=== PATIENT | male | born 1960 | race Caucasian/White ===

== ENCOUNTER 2017-02-26 16:15 | Inpatient (IN) | payer OTHER ==
[2017-02-26 17:08] LABS: % IMMATURE GRANULYOCYTES 0.3 % (0.0-1.1); ABSOLUTE IMMATURE GRANULOCYTES 0.02 10^3/uL (0.00-0.10); ADD DIFF? NO; ADD MORPH? NO; ADD SCAN? NO; ATYPICAL LYMPHOCYTE FLAG 10 (0-99); FRAGMENT RBC FLAG 0 (0-99); HEMATOCRIT 40.7 % (40.0-51.0); HEMOGLOBIN 13.7 g/dL (13.7-17.5); LEFT SHIFT FLG 0 (0-99); LIPEMIA HEMOLYSIS FLAG 80 (0-99); MEAN CELL HEMOGLOBIN 30.4 pg (27.9-34.1); MEAN CELL HEMOGLOBIN CONCENTR. 33.7 g/dL (32.4-36.7); MEAN CELL VOLUME 90.4 fL (81.5-99.8); MEAN PLATELET VOLUME 9.3 fL (8.7-11.7); PLATELET CLUMPS FLAG 0 (0-99); PLATELET COUNT 253 10^3/uL (150-400)
[2017-02-26 17:18] LABS: INR 3.4 (0.83-1.16); PROTIME(PATIENT) 34.9 SEC (12.0-15.0)
[2017-02-26 17:19] LABS: APTT 55.9 SEC (23.0-38.0)
[2017-02-26 17:21] LABS: ANION GAP 11 mEq/L (8-16); BILIRUBIN,TOTAL 0.5 mg/dL (0.1-1.4); CALCIUM 9.4 mg/dL (8.5-10.4); CARBON DIOXIDE 27 mEq/l (22-31); CHLORIDE 101 mEq/L (97-110); CREATININE 0.9 mg/dL (0.7-1.3); GLOMERULAR FILTRATION RATE > 60; GLUCOSE 100 mg/dL (70-100); SODIUM 139 mEq/L (134-144)
[2017-02-26] MEDS ORDERED: VANCOMYCIN 1.25 GM in D5W 250 ML IV ONE (17:52)
[2017-02-26] MEDS ORDERED: NS 1,000 ML IV ONE (17:55)
--- NOTE | 2017-02-26 17:57 | EDPHY ---
H & P Time Seen by Provider: 02/26/17 16:31 HPI/ROS: HPI History of mechanical aortic valve. Fever, chills, night sweats. 56-year-old male by private vehicle with significant other. Patient has a history of an aortic dissection. He had a mechanical aortic valve, [place] device, placed 29 years ago. He was at the office of his loom winder tender yesterday for routine echocardiogram. He explained to his loom winder tender that he has had night sweats on and off for the last month followed by fever and chills in the evenings. He reports that the symptoms have worsened over the last few days. His loom winder tender, Dr. Bruce Rodriguez, ordered blood work including blood cultures. His blood cultures grew out gram-positive cocci in chains x2. Dr. Rodriguez called me and notified me of this. He has also spoken with the hospitalist service and with infectious disease specialist Dr. Chivo Dalal. The patient is to be admitted for IV antibiotics and further evaluation. The patient at this time has no complaints and denies any symptoms. ROS: Constitutional: As above. No weakness. Eyes: No discharge. No changes in vision. ENT: No sore throat. No nasal congestion or rhinorrhea. Respiratory: No cough. No shortness of breath. Cardiac: No chest pain, no palpitations. Gastrointestinal: No abdominal pain, no vomiting, no diarrhea. Genitourinary: No hematuria. No dysuria or increased frequency with urination. Musculoskeletal: No back pain. No neck pain. No myalgias or arthralgias. Skin: No rashes. Neurological: No headache. No focal weakness or altered sensation. Past medical history: As above. Aortic dissection with aortic valve replacement. He is on Coumadin. Social history: Nonsmoker. Here with significant other. No alcohol. Physical Exam: General Appearance: Alert, no distress. This patient is responding to questions appropriately and in full sentences. This patient appears well- hydrated and well-nourished. Eyes: Pupils equal and round no pallor or injection. No lid edema, erythema or injection. Respiratory: There are no retractions, lungs are clear to auscultation with good air movement bilaterally. Cardiovascular: Regular rate and rhythm. No murmur. Gastrointestinal: Abdomen is soft and nontender, no masses, bowel sounds normal. No focal tenderness at McBurney's point. No Becerra sign. Neurological: Motor sensory function is grossly intact. Cranial nerves are normal. Gait is normal. Skin: Warm and dry, no rashes. Musculoskeletal: Neck is supple and nontender. Extremities are symmetrical. All joints range without pain or impingement. Psychiatric: No agitation. No depression. Database: EKG: Imaging: Chest x-ray PA and lateral; the cardiac mediastinal silhouette is unremarkable. No evidence of infiltrate or pneumothorax. No acute cardiopulmonary disease process noted. Interpreted by me. Procedures: Emergency department course: IV placed. He was placed on a monitor. Vital signs reviewed and are normal. He is afebrile. Chest x-ray will be obtained. A 2nd set of blood cultures will be drawn in the emergency department. 5:55 p.m., spoke with infectious disease specialist Dr. Chivo Dalal. He is aware of this patient. He recommends we start the patient on ceftriaxone and vancomycin in the emergency department. This has been ordered. Blood work reviewed. Initial venous lactate is 0.8. 6:20 p.m., spoke with on-call hospitalist Dr. Mindy Miguel. Case discussed in detail. She accepts this patient for admission. Dr. Chivo Dalal to consult. Patient's vital signs have been normal throughout his emergency department course. Plan for admission and treatment discussed. All of his questions were answered. He was admitted in stable condition. Differential Diagnosis: The differential diagnosis on this patient includes but is not limited to endocarditis, sepsis. This represents a partial list of diagnoses considered. These considerations are based on history, physical exam, past history, reassessment and diagnostic testing. Smoking Status: Never smoked Constitutional: Initial Vital Signs Temperature (C) 36.7 C 02/26/17 16:21 Heart Rate 79 02/26/17 16:21 Respiratory Rate 16 02/26/17 16:21 Blood Pressure 135/69 H 02/26/17 16:21 O2 Sat (%) 97 02/26/17 16:21 O2 Delivery Mode Room Air Allergies/Adverse Reactions: No Known Allergies Allergy (Unverified 02/26/17 16:20) Home Medications: Medication Instructions Recorded Herbals/Supplements -Info Only 1 ea PO DAILY 02/26/17 Warfarin Sodium [Coumadin 5MG (*)] 10 mg PO TUTHSA@16 02/26/17 Warfarin Sodium [Coumadin 5MG (*)] 12.5 mg PO SUMOWEFR@16 02/26/17 celeCOXIB [Celebrex (*)] 200 mg PO DAILY PRN 02/26/17 Medical Decision Making - Data Points Laboratory Results: Laboratory Results 02/26/17 16:33 02/26/17 16:48 Medications Given: Ceftriaxone Sodium/Dextrose (Rocephin 1 Gm (Premix)) 50 mls @ 100 mls/hr IV DAILY TAN PRN Reason: Protocol Stop: 03/29/17 08:59 Last Admin: 02/27/17 09:33 Dose: 50 mls Vancomycin HCl 1.25 gm/ (Dextrose) 250 mls @ 166.667 mls/hr IV Q12H TAN Stop: 03/29/17 05:59 Last Admin: 02/27/17 06:00 Dose: 250 mls Sodium Chloride (Ns) 1,000 mls @ 100 mls/hr IV CONT TAN Stop: 08/25/17 22:14 Last Admin: 02/27/17 03:00 Dose: 1,000 mls Discontinued Medications Ceftriaxone Sodium/Dextrose (Rocephin 1 Gm (Premix)) 50 mls @ 100 mls/hr IV EDNOW ONE PRN Reason: Protocol Stop: 02/26/17 18:21 Last Admin: 02/26/17 18:30 Dose: 50 mls Vancomycin HCl 1.25 gm/ (Dextrose) 250 mls @ 166.67 mls/hr IV EDNOW ONE PRN Reason: Protocol Stop: 02/26/17 19:21 Last Admin: 02/26/17 19:33 Dose: 250 mls Sodium Chloride (Ns) 1,000 mls @ 0 mls/hr IV ONCE ONE; Wide Open PRN Reason: Protocol Stop: 02/26/17 17:56 Last Admin: 02/26/17 18:21 Dose: 1,000 mls Departure - Departure Disposition: [facility] Acute Clinical Impression: Endocarditis, Bacteremia
[2017-02-26] MEDS ORDERED: ONDANSETRON 4 MG/2 ML VIAL IVP PRN (22:03)
[2017-02-26] MEDS ORDERED: ACETAMINOPHEN 325 MG TAB PO PRN (22:03)
--- NOTE | 2017-02-27 00:34 | GHP ---
[f rep st] HISTORY AND PHYSICAL DATE OF ADMISSION: 02/26/2017 CHIEF COMPLAINT: Fevers and night sweats. HISTORY OF PRESENT ILLNESS: The patient is a 56-year-old male who had a mechanical aortic valve repl acement at age 26 for a bicuspid aortic valve. He was seen yesterday in the Cardiology office for edelmira broussard followup and told Dr. Rodriguez that he has been having night sweats for the last month with fever a nd chills in the evenings. Blood cultures were drawn. These have come back positive for gram-positi ve cocci chains in all bottles, and he was told to come to the emergency room. He actually feels rel atively well despite this, and continues to work out pretty intensely every day and feels mostly fine during the day until the evening comes along, and he gets fatigued and chilled. He has noticed, how ever, that simple cuts on his fingers turn into pustular infections, and he recently had a pustular s luis in his eye. He had dental work a few months ago, and he cannot remember whether or not he took h is antibiotics. He complains of pleuritic chest pain with deep inspiration for the last month. He h as also recently been diagnosed with rheumatoid factor negative rheumatoid arthritis. His rheumatolo gist did an arthrocentesis of his left knee a couple weeks ago and took off 50 cc of cloudy fluid. I t was not sent for culture. He had a steroid injection. He has had some return of the effusion. PAST MEDICAL HISTORY: 1. Aortic dissection at age 26 due to med bicuspid aortic valve and subsequent aortic valve replacem ent. 2. Rheumatoid arthritis, rheumatoid factor negative. MEDICATIONS: Please see computer record for detailed list. ALLERGIES: No known drug allergies. SOCIAL HISTORY: No smoking, 2 alcoholic beverages per week. He lives with his partner and their son . 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 REVIEW OF SYSTEMS: Complete review of systems obtained. Review of systems negative regarding consti tutional, HEENT, GI, pulmonary, cardiovascular, hematology, skin, muscular, endocrine, psych, except for positives and negatives as under HPI. FAMILY HISTORY: His brother also has a bicuspid aortic valve and required a valve replacement and mario d subsequent endocarditis requiring a redo. His father of leukemia at age 40. His mother has r heumatoid arthritis. PHYSICAL EXAMINATION: GENERAL: Well-developed well-nourished male in no acute distress. VITAL SIGN S: Temperature 36.8, pulse 76, blood pressure 131/82, saturating 98% on room air. EYES: Normal con junctivae. Pupils round and react to light. ENT: Normal ears and nose. Hearing intact. Normal te eth. Oropharynx moist. NECK: Trachea midline. No thyromegaly. CHEST: Normal respiratory effort. LUNGS: Clear to auscultation bilaterally. CARDIOVASCULAR: Regular rate and rhythm. Positive deann ve click. No edema. ABDOMEN: Soft, nontender. No hepatosplenomegaly. SKIN: Warm, dry, intact, w ithout rash. MUSCULOSKELETAL: No cyanosis or clubbing. Strength 5/5 upper and lower extremities. NEUROLOGIC: Cranial nerves intact. Normal sensation to light touch. PSYCHOSOCIAL: Alert and orien xiomara x3. Normal mood and affect. Normal judgment and insight. Normal memory. LABORATORY DATA: White count 6.4, hematocrit 40.7, platelets 253. Sodium 139, potassium 4.0, chlori de 101, bicarb 27, BUN 11, creatinine 0.9, glucose 100. INR 3.4. Lactate 0.8. Blood cultures from yesterday are growing 4 out of 4 bottles gram-positive cocci in chains. I have spoken personally wit h Dr. Rodriguez regarding the blood culture results. Chest x-ray is negative. ASSESSMENT AND PLAN: 1. Bacteremia, currently gram-positive cocci in chains in all bottles. Infectious Disease has been consulted. They are currently recommending IV vancomycin and IV ceftriaxone, and they will see him i n the morning. Will check an echocardiogram. I am suspicious that his recent dental work without an tibiotics may be the source. 2. Mechanical aortic valve replacement. Goal INR is 2.5 to 3.5. 3. Rheumatoid factor negative rheumatoid arthritis, currently not on any medications for this other than p.r.n. Celebrex, which I will hold. He recently had a left knee effusion drained with arthrocen tesis, and unfortunately, was not sent for culture. A steroid was injected into the knee and the flu id has recurred, although does not look clinically infected at this time. CODE STATUS: Full. ADMISSION STATUS: 1. Will admit to inpatient as he is medically complex. Anticipate greater than 2 midnights. 2. DVT prophylaxis. Chronically on warfarin, which will be continued. /[id number]/MODL
[2017-02-27] MEDS: NS 1,000 ML IV SCH ×2 (03:00→15:51)
[2017-02-27 05:32] LABS: % IMMATURE GRANULYOCYTES 0.2 % (0.0-1.1); ABSOLUTE IMMATURE GRANULOCYTES 0.01 10^3/uL (0.00-0.10); ADD DIFF? NO; ADD MORPH? NO; ADD SCAN? NO; ATYPICAL LYMPHOCYTE FLAG 10 (0-99); FRAGMENT RBC FLAG 0 (0-99); HEMATOCRIT 36.2 % (40.0-51.0); HEMOGLOBIN 11.7 g/dL (13.7-17.5); LEFT SHIFT FLG 0 (0-99); LIPEMIA HEMOLYSIS FLAG 80 (0-99); MEAN CELL HEMOGLOBIN 29.2 pg (27.9-34.1); MEAN CELL HEMOGLOBIN CONCENTR. 32.3 g/dL (32.4-36.7); MEAN CELL VOLUME 90.3 fL (81.5-99.8); MEAN PLATELET VOLUME 9.7 fL (8.7-11.7); PLATELET CLUMPS FLAG 0 (0-99); PLATELET COUNT 216 10^3/uL (150-400); RED BLOOD CELL COUNT 4.01 10^6/uL (4.40-6.38); RED CELL DISTRIBUTION WIDTH 14.1 % (11.5-15.2)
[2017-02-27 05:46] LABS: INR 3.69 (0.83-1.16); PROTIME(PATIENT) 37.2 SEC (12.0-15.0)
[2017-02-27 05:53] LABS: ANION GAP 8 mEq/L (8-16); C-REACTIVE PROTEIN 25.3 mg/L (<10.0); CALCIUM 8.7 mg/dL (8.5-10.4); CARBON DIOXIDE 27 mEq/l (22-31); CHLORIDE 105 mEq/L (97-110); CREATININE 0.8 mg/dL (0.7-1.3); GLOMERULAR FILTRATION RATE > 60; GLUCOSE 96 mg/dL (70-100); POTASSIUM 4.3 mEq/L (3.5-5.2); SODIUM 140 mEq/L (134-144)
[2017-02-27] MEDS: VANCOMYCIN 1.25 GM in D5W 250 ML IV SCH ×2 (06:00→17:27)
[2017-02-27 06:13] LABS: SEDIMENTATION RATE 23 MM/HR (0-20)
--- NOTE | 2017-02-27 09:18 | CPEKG ---
Heart Rate: 69 RR Interval: 870 P-R Interval: 164 QRSD Interval: 86 QT Interval: 396 QTC Interval: 425 P Benedict: 48 QRS Benedict: -18 T Wave Benedict: 53 EKG Severity - OTHERWISE NORMAL ECG - EKG Impression: SINUS RHYTHM EKG Impression: BORDERLINE LEFT AXIS DEVIATION EKG Impression: LEFT ATRIAL ENLARGEMENT Electronically Signed By: Javy Burris 27-Feb-2017 18:36:35
--- NOTE | 2017-02-27 11:08 | PDMN ---
Medical Necessity Medical necessity: Patient meets INPT criteria per physician note and MCG M-160 Sepsis and Other Febrile Illness, without Focal Infection (bacteremia: seen by cardiology for night sweats, fever, chills, pleuritic chest pain for last month ; blood cultures drawn in office show GPC; C-reactive protein 25.3; remote hx AVR/recent hx dental work and L knee effuision drained via arthrocentesis; anticipated LOS > 2 midnights for IV antibiotics, awaiting ID consult.)
--- NOTE | 2017-02-27 14:35 | ASMTCMCOM ---
CM Note CM Note Notes: Patient diagnosed with bacteremia, possibly related to recent dental work. He is being treated with IV antibiotics. Patient is otherwise healthy, active, employed, and lives with his partner and their son. No therapy evals have been ordered, and I anticipate he will discharge home independently. If any needs arise, CM available for assistance. Current CM discharge plan: home with family Date Signed: 02/27/2017 02:34 PM Electronically Signed By:Cami Ellison RN
--- NOTE | 2017-02-27 15:01 | ECHO ---
[email or web address] [address] [address] Main: [phone] Fax: Transthoracic Echocardiogram Name: AGNIESZKA LOMBARDI MR#: [id number] Study Date: 02/27/2017 Study Time: 10:55 AM Date of : 1960 Age: 56 year(s) Height: 177.8 cm (70 in.) Weight: 73.03 kg (161 lb.) BSA: 1.9 m2 Gender: Male Examination: Echo Indication: Aortic Valve Replacement, [place] 30yrs ago with Ascending Ao graft, Strep sepsis. Image Quality: Contrast: Requested by: Mindy Miguel BP: 111 mmHg/72 mmHg Heart Rate: Rhythm: Indication: Aortic Valve Replacement, [place] 30yrs ago with Ascending Ao graft, Strep sepsis. Procedure Staff Litigation Associate: Tab Harris Reading Physician: Dinesh Baker Requesting Provider: Conclusions: Normal global systolic LV function. EF is 63 %. The aortic valve is a mechanical prosthesis.. The Ao Mean PG is 17 mmHg with a Vmax of 2.7 m/s. No gross evidence of vegetation(s) on mAVR although endocarditis cannot be ruled out. Mild tricuspid regurgitation is present. There is a graft in the ascending Ao.. No dilatation of the aorta. Previous Echo from 2 weeks ago at [facility] demonstrated a Mean Ao gradient of 21mmHg.. Measurements: Chambers Valvular Assessment AV/MV Valvular Assessment TV/PV Normal Normal Normal Name Value Range Name Value Range Name Value Range IVSd (2D): 1.0 cm (0.6 cm-1.1 AV Vmax: 2.81 m/s (1 m/s-1.7 TR Vmax: 3.31 mm/s ( - ) cm) m/s) TR PGmax: 44 mmHg ( - ) LVDd (2D): 4.6 cm (4.2 cm-5.9 AV maxP mmHg ( - ) syst. PAP: 49 mmHg ( - ) cm) AV meanP mmHg ( - ) PV Vmax: 0.83 m/s (0.6 m/s-0.9 LVDs (2D): 3.0 cm (2.1 cm-4 LVOT Vmax: 0.92 m/s (0.7 m/s-1.1 m/s) cm) m/s) PV PGmax: 3 mmHg ( - ) LVPWd (2D): 1.1 cm (0.6 cm-1 AMY (Vmax): 1.2 cm2 ( - ) cm) AMY (VTI): 1.5 cm ( - ) LVOTd 2.2 cm 2.2 cm mm AR (PHT): 344 ms ( - ) LVEF (2D): 63 (>=54 %) MV E Vmax: 0.75 m/s ( - ) MV A Vmax: 0.56 m/s ( - ) MV E/A: 1.34 ( - ) Continued Measurements: Patient: AGNIESZKA LOMBARDI Study Date: 02/27/2017 Page 1 of 2 10:55 AM Chambers Valvular Assessment AV/MV Valvular Assessment TV/PV Name Value Name Value Name Value LADs Lon.9 cm MV E/E' Septal: 10.40 CVP (est.): 5 mmHg LA Area: 14.4 cm2 MV E/E' Lateral: 6.50 LA Volume: 43 ml AR Vmax: 1.98 cm/s LA Volume Index: 22.6 ml/m2 Findings: Left Ventricle: Normal size left ventricle. Normal global systolic LV function. EF is 63 %. Right Ventricle: Normal size right ventricle. Normal RV function. Left Atrium: The left atrium is normal in size. Right Atrium: The right atrium is normal in size. Mitral Valve: The mitral valve is normal in appearance and function. There is no mitral valve regurgitation. Aortic Valve: The aortic valve is a mechanical prosthesis.. The Ao Mean PG is 17 mmHg with a Vmax of 2.7 m/s. No gross evidence of vegetation(s) on mAVR although endocarditis cannot be ruled out. Tricuspid Valve: Mild tricuspid regurgitation is present. The pulmonary artery pressure is mild to moderately increased. Pulmonic Valve: The pulmonic valve is normal in appearance and function. Aorta: There is a graft in the ascending Ao.. The aorta is normal. No dilatation of the aorta. Pericardium: No pericardial effusion. Exam Comments: Previous Echo from 2 weeks ago at [facility] demonstrated a Mean Ao gradient of 21mmHg.. (No Signature Object) Patient: AGNIESZKA LOMBARDI Study Date: 02/27/2017 Page 2 of 2 10:55 AM [id number]
--- NOTE | 2017-02-27 15:04 | SOAPPROG ---
SOAP Progress Note Assessment/Plan: Assessment: CTS Seen and examined d/w IM Echo reviewed Await +BC details OE [place] valve sounds, no obvious ai murmur No obvious peripheral emboli lungs clear well healed chest incision some l knee swelling labs reviewed echo official read pending ?filamentous debris on ventricular view of prosthetic ao valve Imp: ?Prosthetic SBE; rec JULIETA, await c+s final results ?Graft infection; rec CTA Ao/chest Hx of many ("50") episodes of amaurosis alternating eyes, last several wks ago, some with low A/C; continue a/c Hx of RF- RA? with scope jul 2016 on left and more recent tap and steroid injection, ? related to infection; may need ortho eval/retap For now ABx and above. Reoperation more difficult as he has a valved conduit which likely would require reop root replacement rather than "simple" reop avr so hopefully can avoid surgery. Plan: 02/27/17 14:56 Objective: Vital Signs Temp Pulse Resp BP Pulse Ox 36.7 C 66 18 111/76 95 02/27/17 08:07 02/27/17 11:36 02/27/17 11:36 02/27/17 11:36 02/27/17 11:36 Laboratory Results 02/27/17 04:55 02/27/17 04:55 02/26/17 02/27/17 02/28/17 05:59 05:59 05:59 Intake Total 650 560 Balance 650 560 PT 37.2 SEC (12.0-15.0) H 02/27/17 04:55 INR 3.69 (0.83-1.16) H 02/27/17 04:55 ICD10 Worksheet Patient Problems: Problems Problem Status Onset Bacteremia Acute Endocarditis Acute
[2017-02-27] MEDS ORDERED: IOPAMIDOL (ISOVUE 370) 100 ML BTL IV ONE (15:22)
[2017-02-27] MEDS ORDERED: WARFARIN SODIUM 4 MG TAB PO ONE (16:00)
[2017-02-27] MEDS ORDERED: WARFARIN SODIUM 5 MG TAB PO SCH (16:00)
--- NOTE | 2017-02-27 16:01 | HOSPPROG ---
Hospitalist Progress Note Assessment/Plan: Assessment: 56-year-old male presents with Abiotrophia defectiva bacteremia in the setting of mechanical aortic valve Plan: 1. Possible subacute bacterial endocarditis. Acute, new problem this provider, further workup indicated. Evidenced by bacteremia, possible aortic valve lesion on ventricular view of transthoracic echocardiogram -discussed with Dr. Hugh go, he recommends transesophageal echocardiogram, ordered -he also recommends gated CT of the chest to evaluate the aortic graft site -infectious Disease has been consulted, continuing vancomycin and ceftriaxone until sensitivities available -repeat blood cultures currently no growth to date -ESR 23, CRP 25 comma chest x-ray without any evidence of CHF, personally interpreted 2.Abiotrophia defectiva bacteremia. Present on outside records (reviewed), blood cultures -continue empiric IV antibiotics -repeat blood cultures no growth today -hold on PICC line placement until repeat cultures negative and surgical plan establish 3. Mechanical aortic valve. Placed approximately 29 years ago, goal INR 2.5-3.5 -receive reduced dose of Coumadin today, 8 mg, will plan on holding moving forward given possible surgery -daily INR 4. Rheumatoid factor negative rheumatoid arthritis. Monitor any evidence of joint effusions, as these represent septic arthritis and require joint aspirate -currently does not have any inflamed joints -as needed NSAIDs Diet. Regular, NPO in a.m. Prophylaxis. High risk patient, currently on Coumadin Code. Full Disposition. Anticipated discharge uncertain, pending treatment for bacteremia as well as possible endocarditis. Subjective: Patient reports no joint pains, no chest pain Objective: Vital Signs Temp Pulse Resp BP Pulse Ox 36.7 C 66 18 111/76 95 02/27/17 08:07 02/27/17 11:36 02/27/17 11:36 02/27/17 11:36 02/27/17 11:36 Laboratory Results 02/27/17 04:55 02/27/17 04:55 02/26/17 02/27/17 02/28/17 05:59 05:59 05:59 Intake Total 650 560 Balance 650 560 PT 37.2 SEC (12.0-15.0) H 02/27/17 04:55 INR 3.69 (0.83-1.16) H 02/27/17 04:55 - Physical Exam Constitutional: no apparent distress, appears nourished, not in pain Cardiovascular: systolic murmur (2/6 systolic murmur at the right sternal border ), other (No abdominal bruits), No irregularly irregular, No tachycardia, No edema Respiratory: no respiratory distress, no rales or rhonchi, clear to auscultation Gastrointestinal: normoactive bowel sounds, soft, non-tender abdomen, no palpable masses Neurologic: AAOx3, sensation intact bilaterally, No facial droop Psychiatric: interacting appropriately, not anxious, not encephalopathic, thought process linear ICD10 Worksheet Patient Problems: Problems Problem Status Onset Bacteremia Acute Endocarditis Acute
[2017-02-27] MEDS ORDERED: BENZOCAINE UNIT DOSE SPRAY HURRICAINE MM ONE (16:04)
[2017-02-27] MEDS ORDERED: MIDAZOLAM 2 MG/2 ML VIAL IVP ONE (16:04)
[2017-02-27] MEDS ORDERED: NS 500 ML IV ONE (16:04)
[2017-02-27] MEDS ORDERED: fentaNYL 100 MCG/2 ML INJ IVP ONE (16:04)
[2017-02-27] MEDS: GENTAMICIN 80 MG/NACL 100 ML IV SCH (19:22)
--- NOTE | 2017-02-27 21:50 | GCON ---
[f rep st] CONSULTATION INFECTIOUS DISEASE CONSULTATION REFERRING PHYSICIAN: Mindy Miguel MD REASON FOR REFERRAL: Prosthetic valve endocarditis. HISTORY OF PRESENT ILLNESS: Patient is a 56-year-old male who has a past medical history of receivin g a mechanical aortic valve in his 20s secondary to bicuspid aortic valve. 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 The patient states that he was general ly feeling poorly over the last month or so. He has been having night sweats along with subjective f nelly and chills. Blood cultures were drawn in his senior radiation therapist's office which started growing yeste rday gram-positive cocci in chains. After conference by phone, we suggested he come in for admission . Patient was admitted overnight and started on vancomycin and ceftriaxone. Currently, he is restin g comfortably in his hospital bed. He has been walking around the hallways and spending some time ou tside on the porch today. He generally feels well. PAST MEDICAL HISTORY: 1. History of an aortic dissection at age 26 secondary to bicuspid aortic valve and aortic pathology . 2. History of rheumatoid arthritis, diagnosed by Dr. Bradley Jimenez at [facility]. He i s rheumatoid factor negative. PAST SURGICAL HISTORY: Status post aortic valve replacement at age 26 with aortic repair. PAST ANTIBIOTICS: 1. Vancomycin. 2. Ceftriaxone. ALLERGIES: The patient has no known drug allergies. SOCIAL HISTORY: No significant tobacco, alcohol or drug use noted. The patient lives with his spous e and son. 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 FAMILY HISTORY: Brother with bicuspid aortic valve and aortic pathology as well. Otherwise noncontr ibutory. REVIEW OF SYSTEMS: Other than that detailed above in the history of present illness, comprehensive 1 0-system review is negative. PHYSICAL EXAMINATION: VITAL SIGNS: Temperature maximum is 36.8, temperature current is 36.7, heart rate is 59, respiratory rate is 18, blood pressure is 110/78. GENERAL: The patient is a well-formed , well-nourished, older male, in no acute distress. He is not toxic in appearance. He is alert and oriented x3. He has a pleasant demeanor. HEENT: Normocephalic for age. Atraumatic. No scleral ic terus. No oral lesion. No drainage from the nares. Eyes, lids, and conjunctivae are within normal limits. Pupils are equal and round bilaterally. NECK: Supple. No meningismus. LUNGS: Clear to a uscultation bilaterally. Good effort. HEART: Regular rate and rhythm. Mechanical click heard. No murmur, rub, or gallop noted. No significant peripheral edema. SKIN: Warm and dry to the touch. No rash or lesions noted. No stigmata of endocarditis. MUSCULOSKELETAL: No muscle belly tenderness is noted. No joint line effusion or arthritis is seen. NEURO: Cranial nerves 2-[address]. Peripheral sensation seems intact in extremities. LABORATORY DATA: Patient has a CBC dated 02/27/2017 shows white blood cell count of 6.01, hemoglobin 11.7, hematocrit of 36.2, and platelet count of 216. Differential is within normal limits. Erythro cyte sedimentation rate is 23. Serum chemistries on 02/27/2017 show sodium 140, potassium 4.3, chlor leslie 105, bicarbonate 27, BUN of 9, and creatinine 0.8. C-reactive protein is 25.3. MICROBIOLOGIC DATA: Patient has blood cultures dated 02/25/2017, which are growing Abiotrophia defec tiva. The patient also has repeat blood cultures on 02/26/2017 which are 1/2 sets growing gram-posit steff cocci in chains. RADIOLOGIC DATA: Patient has a 2D echocardiogram done on 02/26/2017 which shows no gross evidence of vegetations on the mechanical aortic valve. ASSESSMENT: Abiotrophia bacteremia in setting of mechanical aortic valve and aortic grafting. I erlin pect this indicates a mechanical valve endocarditis even though there is nothing seen on 2D echocardi ogram. Will continue antibiotic coverage. Suspect patient will need a 4-6 week course. If he canno t clear his blood cultures, surgical revision may be necessary. Will await cardiothoracic surgery co nsultation. PLAN: 1. Continue IV antibiotics. 2. Follow clinical course. 3. Follow up on cardiothoracic recommendations. /[id number]/MODL
[2017-02-28] MEDS: GENTAMICIN 80 MG/NACL 100 ML IV SCH ×3 (02:34→17:42)
[2017-02-28 05:17] LABS: % IMMATURE GRANULYOCYTES 0.3 % (0.0-1.1); ABSOLUTE IMMATURE GRANULOCYTES 0.02 10^3/uL (0.00-0.10); ADD DIFF? NO; ADD MORPH? NO; ADD SCAN? NO; ATYPICAL LYMPHOCYTE FLAG 10 (0-99); FRAGMENT RBC FLAG 0 (0-99); HEMOGLOBIN 12.6 g/dL (13.7-17.5); LEFT SHIFT FLG 0 (0-99); LIPEMIA HEMOLYSIS FLAG 80 (0-99); MEAN CELL HEMOGLOBIN 30.3 pg (27.9-34.1); MEAN CELL HEMOGLOBIN CONCENTR. 33.2 g/dL (32.4-36.7); MEAN CELL VOLUME 91.3 fL (81.5-99.8); MEAN PLATELET VOLUME 9.5 fL (8.7-11.7); PLATELET CLUMPS FLAG 0 (0-99); PLATELET COUNT 218 10^3/uL (150-400); RED BLOOD CELL COUNT 4.16 10^6/uL (4.40-6.38); RED CELL DISTRIBUTION WIDTH 14.2 % (11.5-15.2)
[2017-02-28 05:28] LABS: INR 2.96 (0.83-1.16); PROTIME(PATIENT) 31.2 SEC (12.0-15.0)
[2017-02-28] MEDS ORDERED: BENZOCAINE UNIT DOSE SPRAY HURRICAINE MM ONE ×2 (06:00→13:15)
[2017-02-28] MEDS ORDERED: fentaNYL 100 MCG/2 ML INJ IVP ONE ×2 (06:00→13:15)
[2017-02-28] MEDS ORDERED: MIDAZOLAM 2 MG/2 ML VIAL IVP ONE ×2 (06:00→13:15)
[2017-02-28] MEDS ORDERED: NS 500 ML IV ONE ×2 (06:00→13:15)
[2017-02-28] MEDS: cefTRIAXone 2 GM in D5W 50 ML IV SCH (08:53)
--- NOTE | 2017-02-28 09:01 | HOSPPROG ---
Hospitalist Progress Note Assessment/Plan: # Abiotrophia defectiva bacteremia - rocephin and gent per ID # SBE vs graft infection in setting of mechanical AV, ascending aorta graft - JULIETA today, cards and CT surgery following # short segment of aortic dissection # L knee effusion - arthrocentesis today, send for culture # mechanical AVR - almost 30 years ago d/t bicuspid AV - INR 2.5-3.5, holding coumadin, start lovenox when INR < 2.5 # ?seronegative RA - doubt, more likely symptoms d/t SBE Subjective: discussed options regarding treatment; night sweats for months Objective: Vital Signs Temp Pulse Resp BP Pulse Ox 36.5 C 61 16 102/67 94 02/28/17 07:37 02/28/17 07:37 02/28/17 07:37 02/28/17 07:37 02/28/17 07:37 Laboratory Results 02/28/17 04:24 02/27/17 04:55 02/27/17 02/28/17 03/01/17 05:59 05:59 05:59 Intake Total 650 2515 Balance 650 2515 PT 31.2 SEC (12.0-15.0) H 02/28/17 04:24 INR 2.96 (0.83-1.16) H 02/28/17 04:24 CT reviewed chart reviewed ECG personally reviewed - Physical Exam Constitutional: no apparent distress, appears nourished Cardiovascular: systolic murmur, irregularly irregular, other (S2 click), No diastolic murmur Respiratory: no respiratory distress, no rales or rhonchi, clear to auscultation Gastrointestinal: normoactive bowel sounds, soft, non-tender abdomen, no palpable masses Musculoskeletal: other (L knee effusion) ICD10 Worksheet Patient Problems: Problems Problem Status Onset Bacteremia Acute Endocarditis Acute
--- NOTE | 2017-02-28 11:30 | PCMIDPN ---
Assessment/Plan: 1. 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 For now, agree with ceftriaxone and gentamicin. Peak and trough levels of gentamicin have been ordered. Peak should be between 3 and 4, with an undetectable trough. Have also ordered daily EKGs given the sinister nature of this organism. Repeat blood cultures have also been ordered. JULIETA this morning. 2. Ocular complaints: The patient has had eye complaints for many years now, but do feel that an ophthalmological exam is prudent to rule out endophthalmitis. Subjective: Patient is worried about his infection. Is not having drenching night sweats or rigors for the past 24 hours. Still having ocular complaints. Objective: Ceftriaxone 2 g IV daily day 1. (previously was on only 1 g daily) Gentamicin 80 mg IV q.8 hours day 1. Afebrile Vital Signs Temp Pulse Resp BP Pulse Ox 36.4 C 66 12 134/88 H 97 02/28/17 11:20 02/28/17 11:20 02/28/17 11:20 02/28/17 11:20 02/28/17 11:20 Laboratory Results 02/28/17 04:24 02/27/17 04:55 02/27/17 02/28/17 03/01/17 05:59 05:59 05:59 Intake Total 650 2515 Balance 650 2515 ESR 23 MM/HR (0-20) H 02/27/17 04:55 C-Reactive Protein 25.3 mg/L (<10.0) H 02/27/17 04:55 - Physical Exam General Appearance: alert, no apparent distress EENT: normal ENT inspection, pharynx normal, other (No hypopyon) Respiratory: lungs clear Cardiac/Chest: regular rate, rhythm, systolic murmur, other (Mechanical aortic click audible) Extremities: other (Left knee mildly swollen, but not red, or warm. Full range of motion of the knee with no pain), No pedal edema Abdomen: non-tender, soft Skin: other (Onychomycosis bilaterally of his toenails), No embolic lesions Neuro/Psych: no motor/sensory deficits, oriented x 3 ICD10 Worksheet Patient Problems: Problems Problem Status Onset Bacteremia Acute Endocarditis Acute
[2017-02-28 12:28] LABS: ALBUMIN 4.1 g/dL (3.5-5.0); BILIRUBIN,TOTAL 0.3 mg/dL (0.1-1.4); BILIRUBIN-UNCONJUGATED 0.3 mg/dL (0.0-1.1); TOTAL PROTEIN 7.8 g/dL (6.3-8.2)
--- NOTE | 2017-02-28 13:50 | PDCONSULT ---
History Department Chair Note: 56 yo male with recent transient visual changes. Called to see patient per Dr. Mckeon to rule out infectious process. Exam at bedside. Patient with long history of transient visual obscurations separately in each eye lasting no more than a few minutes with recurrence recently. Occasionally associated with headaches but primarily not. Patient's history significant for aortic valve replacement. Also more recently diagnosed with Central Serous Retinopathy OD ( seen by Dr. Denis). Exam Vision to near card through glasses OD 20/30 OS 20/20 Anterior segment exam normal with eyes soft to palpation. Limited dilated funduscopic exam was within normal limits. No signs of hemorrhage, infectious process, or Hollenhorst plaques. Assessment/Plan Transient visual symptoms consistent with vascular event or acephalgic migraine. No ocular pathology seen. Defer additional vascular workup to cardiology. No signs of infection.
--- NOTE | 2017-02-28 13:55 | PDPROPOC ---
Sedation Plan of Care Sedation Plan of Care: vital signs stable, mental status noted, patient educated of risks, benefits, alternatives, patient can tolerate sedation ASA Classification: ASA 2 Planned drugs: fentanyl, midazolam Mallampati Score: Class 2 Mallampati Reference Image: Patient passed 3-3-2 rule?: Yes
--- NOTE | 2017-02-28 13:55 | PDHPUP ---
History & Physical Update H&P update statement: This history and physical update is based on an assessment of the patient which was completed after admission or registration (within 24 hours), but prior to the surgery/procedure. H&P update: H&P reviewed & patient examined, no change in patient's condition since H&P completed
[2017-02-28] MEDS ORDERED: fentaNYL 100 MCG/2 ML INJ ONE (14:42)
[2017-02-28] MEDS ORDERED: LIDOCAINE 1% 300 MG/30 ML SDV ONE (15:35)
--- NOTE | 2017-02-28 15:58 | ECHO ---
[email or web address] [address] [address] Main: [phone] Fax: Transesophageal Echocardiography Name: AGNIESZKA LOMBARDI MR#: [id number] Study Date: 02/28/2017 Study Time: 02:28 PM Date of : 1960 Age: 56 year(s) Height: ( ) Weight: ( ) BSA: Gender: Male Examination: Indication: [place] valve, Fever unknown origin, Eval for Vegetation Image Quality: Contrast: Requested by: Javy Hernandez Heart Rate: Rhythm: BP: / Procedure Staff Burial Needs Salesperson: Tab Harris Reading Physician: Pantera Pack Requesting Provider: JULIETA Exam Details Conclusions: Normal left ventricular size and systolic function. LVEF estimated at 55-60%. There are no regional wall motion abnormalities, The patient has had a previous mechanical aortic valve replacement performed in conjunction with aortic root replacement . The bileaflet tilting disc valve is well-seated. There are no obvious vegetations. There is no perivalvular flow appreciated. Trivial aortic regurgitation is noted consistent with normal closing volumes. The mitral valve is normal in morphology with trivial mitral regurgitation. 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 Tri-leaflet valve is normal in appearance with trivial tricuspid regurgitation. The interatrial septum is intact On color flow Doppler interrogation and by agitated saline contrast study. There is no pericardial effusion. Left atrial appendage is free of thrombus. Measurements: Chambers Valvular Assessment AV/MV Valvular Assessment TV/PV Normal Normal Normal Name Value Range Name Value Range Name Value Range Additional Measurements: Findings: Left Ventricle: Normal global systolic LV function. Right Ventricle: Normal RV function. Patient: AGNIESZKA LOMBARDI Study Date: 02/28/2017 Page 1 of 2 02:28 PM Left Atrium: An agitated saline study was performed and was positive for intracardiac shunting. Left Atrial Appendage: Good color flow doppler in the left atrial appendage. Normal PW-Doppler flow pattern. No thrombus in left appendage. Right Atrium: The right atrium is normal in size. Mitral Valve: The mitral valve is normal in appearance and function. Aortic Valve: There is no aortic valve vegetation. 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 Normal functioning aortic valve prosthesis. The prosthetic aortic valve is normal. Tricuspid Valve: The tricuspid valve is normal in appearance and function. Pulmonic Valve: The pulmonic valve is normal in appearance and function. Aorta: The ascending aorta has been repaired/replaced. Pericardium: No pericardial effusion. l1n (No Signature Object) Patient: AGNIESZKA LOMBARDI Study Date: 02/28/2017 Page 2 of 2 02:28 PM [id number]
[2017-02-28] MEDS ORDERED: WARFARIN SODIUM 5 MG TAB PO SCH (16:00)
[2017-02-28 18:36] LABS: WBC, SYNOVIAL FLUID 5049 /mm3 (0-150)
[2017-02-28 20:15] LABS: CRYSTALS, SYNOVIAL FLUID NONE SEEN (NONE SEEN)
[2017-03-01] MEDS: GENTAMICIN SULFATE IV SCH ×3 (01:15→17:48)
[2017-03-01] MEDS: D5W IV SCH ×3 (01:15→17:48)
[2017-03-01 05:58] LABS: % IMMATURE GRANULYOCYTES 0.2 % (0.0-1.1); ABSOLUTE IMMATURE GRANULOCYTES 0.01 10^3/uL (0.00-0.10); ADD DIFF? NO; ADD MORPH? NO; ADD SCAN? NO; ATYPICAL LYMPHOCYTE FLAG 10 (0-99); FRAGMENT RBC FLAG 0 (0-99); HEMATOCRIT 38.7 % (40.0-51.0); HEMOGLOBIN 12.8 g/dL (13.7-17.5); LEFT SHIFT FLG 0 (0-99); LIPEMIA HEMOLYSIS FLAG 80 (0-99); MEAN CELL HEMOGLOBIN 30.2 pg (27.9-34.1); MEAN CELL HEMOGLOBIN CONCENTR. 33.1 g/dL (32.4-36.7); MEAN CELL VOLUME 91.3 fL (81.5-99.8); MEAN PLATELET VOLUME 9.4 fL (8.7-11.7); PLATELET CLUMPS FLAG 0 (0-99); PLATELET COUNT 238 10^3/uL (150-400); RED BLOOD CELL COUNT 4.24 10^6/uL (4.40-6.38); RED CELL DISTRIBUTION WIDTH 14.1 % (11.5-15.2)
[2017-03-01 06:05] LABS: INR 2.64 (0.83-1.16); PROTIME(PATIENT) 28.5 SEC (12.0-15.0)
--- NOTE | 2017-03-01 06:05 | CPEKG ---
Heart Rate: 62 RR Interval: 968 P-R Interval: 180 QRSD Interval: 86 QT Interval: 416 QTC Interval: 423 P Velarde: 55 QRS Velarde: 4 T Wave Velarde: 53 EKG Severity - NORMAL ECG - EKG Impression: SINUS RHYTHM Electronically Signed By: Arnel Marr 03-Mar-2017 11:50:28
[2017-03-01 06:21] LABS: ALANINE AMINOTRANSFERASE 37 IU/L (21-72); ALBUMIN 3.1 g/dL (3.5-5.0); ALKALINE PHOSPHATASE 76 IU/L (38-126); ANION GAP 5 mEq/L (8-16); ASPARTATE AMINOTRANSFERASE 25 IU/L (17-59); BILIRUBIN,TOTAL 0.3 mg/dL (0.1-1.4); CALCIUM 9.2 mg/dL (8.5-10.4); CARBON DIOXIDE 30 mEq/l (22-31); CHLORIDE 104 mEq/L (97-110); CREATININE 0.8 mg/dL (0.7-1.3); GLOMERULAR FILTRATION RATE > 60; GLUCOSE 99 mg/dL (70-100); POTASSIUM 4.6 mEq/L (3.5-5.2); SODIUM 139 mEq/L (134-144); TOTAL PROTEIN 6.5 g/dL (6.3-8.2)
[2017-03-01] MEDS: cefTRIAXone 2 GM in D5W 50 ML IV SCH (09:20)
--- NOTE | 2017-03-01 09:47 | SOAPPROG ---
FELIX Progress Note Assessment/Plan: Assessment: 56-year-old male with a history of bicuspid aortic valve who presented 26 years ago with an aortic dissection. At that time, he underwent [place] aortic valve replacement surgery and placement of a [place]-Vern graft in the ascending aorta. Presents now with 2 week history of night sweats and rigors. He has had a several month history of chills. Earlier this year he had a dental cleaning in the absence of prophylactic antibiotics. Last July he had left knee arthroscopy done. About 3 weeks ago he had his left knee aspirated. Has positive blood cultures for Abiotropia Defectiva. At this point, the diagnosis of prosthetic valve endocarditis is not definitive. He falls into the possible range. He is currently being treated with broad-spectrum antibiotics. His left knee was aspirated with a culture currently pending. There were no organisms identified. I reviewed his gated chest CT with Radiology. There was no indication of a perivalvular abscess or other active process within the chest cavity. Plan: 1. At this point, I do not think that there is a clear indication for him to undergo redo aortic valve replacement/ascending aorta replacement. 2. He will continue to receive IV antibiotics likely for 6 weeks. 3. I discussed with Radiology whether not I a cardiac MRI might add any clinical data. They thought the chest CT was sufficient to rule out perivalvular abscess. 4. He will be monitored carefully for any other clinical signs or symptoms that might indicate prosthetic valve endocarditis. 5. We will follow along with you. 03/01/17 11:02 Subjective: The patient was seen and examined. His chart was reviewed. The case was discussed with his primary care etiologies Dr. Bruce Rodriguez. He states he is feeling well today. He has not had any further fevers, chills or night sweats. He did have his knee aspirated yesterday because of swelling and pain. The Gram stain did not indicate any organisms. Culture is currently pending. I did his JULIETA yesterday. There were no findings on the transesophageal echocardiogram that definitively indicated prosthetic valve endocarditis. Objective: Vital Signs Temp Pulse Resp BP Pulse Ox 36.4 C 61 14 104/66 94 03/01/17 07:15 03/01/17 07:15 03/01/17 07:15 03/01/17 07:15 03/01/17 07:15 Microbiology 02/28/17 16:30 Gram Stain - Final Synovial Fluid - Aspirate Laboratory Results 03/01/17 04:45 03/01/17 04:45 02/28/17 03/01/17 03/02/17 05:59 05:59 05:59 Intake Total 2515 1690 Balance 2515 1690 PT 28.5 SEC (12.0-15.0) H 03/01/17 04:45 INR 2.64 (0.83-1.16) H 03/01/17 04:45 Physical Exam - Physical Exam General Appearance: WD/WN, no apparent distress Neck: non-tender, supple Respiratory: chest non-tender, lungs clear, No respiratory distress, No accessory muscle use, No decreased breath sounds, No crackles Cardiac/Chest: normal peripheral pulses, regular rate, rhythm, systolic murmur ( Soft 1/6 systolic ejection murmur), other ([place] mechanical valve sounds), No edema, No gallop, No JVD Peripheral Pulses: 2+: carotid (R), carotid (L) Abdomen: non-tender, soft Male Genitalia: deferred Rectal: deferred Skin: normal color, warm/dry, other (Possible splinter hemorrhage in the right hand, possible Adelaida ways lesions noted on the sole of the right foot) Neuro/Psych: alert, oriented x 3 ICD10 Worksheet Patient Problems: Problems Problem Status Onset Bacteremia Acute Endocarditis Acute
--- NOTE | 2017-03-01 12:05 | HOSPPROG ---
Hospitalist Progress Note Assessment/Plan: # Abiotrophia defectiva bacteremia - rocephin and gent per ID - not clearly endocarditis by [place] criteria # possible endocarditis, graft infection in setting of mechanical AV, ascending aorta graft - JULIETA without clear vegetation # short segment of aortic dissection # L knee effusion - arthrocentesis today, send for culture - follow culture, crystals # mechanical AVR - almost 30 years ago d/t bicuspid AV - INR 2.5-3.5, restart coumadin today, follow daily # ?seronegative RA - doubt, more likely symptoms d/t SBE/bacteremia Subjective: mild chills last night Objective: Vital Signs Temp Pulse Resp BP Pulse Ox 36.4 C 70 17 112/76 98 03/01/17 11:02 03/01/17 11:02 03/01/17 11:02 03/01/17 11:02 03/01/17 11:02 Microbiology 02/28/17 16:30 Gram Stain - Final Synovial Fluid - Aspirate Laboratory Results 03/01/17 04:45 03/01/17 04:45 02/28/17 03/01/17 03/02/17 05:59 05:59 05:59 Intake Total 2515 1690 Balance 2515 1690 PT 28.5 SEC (12.0-15.0) H 03/01/17 04:45 INR 2.64 (0.83-1.16) H 03/01/17 04:[address] Pack - Time Spent With Patient Time Spent with Patient: greater than 35 minutes Time Spent with Patient: Greater than 35 minutes spent on this patients care, greater than 50% of time spent counseling, educating, and coordinating care regarding the above mentioned plan. - Physical Exam Constitutional: no apparent distress, appears nourished ICD10 Worksheet Patient Problems: Problems Problem Status Onset Endocarditis Acute Bacteremia Acute
--- NOTE | 2017-03-01 13:49 | PCMIDPN ---
Assessment/Plan: Assessment/Plan: 1. 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 -Currently on ceftriaxone and gentamicin. -Peak and trough levels of gentamicin yesterday elevated. dose reduced to 60mg q8. f/u t/p later today. - Peak should be between 3 and 4, with an undetectable trough. -f/u blood cx 02/28/17 pending - JULIETA pending - appreciate Ophtho's eval -care coordinated with hospitalist team Meds ceftraixone 2g daily Gent 60 mg q8 Objective: Vital Signs Temp Pulse Resp BP Pulse Ox 36.4 C 70 17 112/76 98 03/01/17 11:02 03/01/17 11:02 03/01/17 11:02 03/01/17 11:02 03/01/17 11:02 Microbiology 02/28/17 16:30 Gram Stain - Final Synovial Fluid - Aspirate Laboratory Results 03/01/17 04:45 03/01/17 04:45 02/28/17 03/01/17 03/02/17 05:59 05:59 05:59 Intake Total 2515 1690 Balance 2515 1690 ESR 23 MM/HR (0-20) H 02/27/17 04:55 C-Reactive Protein 25.3 mg/L (<10.0) H 02/27/17 04:55 ICD10 Worksheet Patient Problems: Problems Problem Status Onset Bacteremia Acute Endocarditis Acute
--- NOTE | 2017-03-01 15:25 | ASMTCMCOM ---
CM Note CM Note Notes: Reviewed chart regarding discharge plan, pt's progress. Pt w/ abiotrophia defectiva bacteremia w/ poss endocarditis. L knee effusion, s/p arthrocentesis today, sent for culture. Per MD notes, pt will likely require 6 wks of IV antibiotics, although details remain to be determined (TBD). Cardiology still evaluating need for valve replacement. Pt will likely require home health care (HHC) w/ infusion services upon discharge. CM will cont to follow. Current Discharge Plan: TBD, anticipate HHC w/ infusion services Date Signed: 03/01/2017 03:25 PM Electronically Signed By:Opal Layton RN
[2017-03-01] MEDS ORDERED: WARFARIN SODIUM 5 MG TAB PO SCH (16:00)
--- NOTE | 2017-03-01 22:24 | SOAPPROG ---
SOAP Progress Note Assessment/Plan: Assessment: CTS Seen and examined d/w IM Echo reviewed Await +BC details OE Todd valve sounds, no obvious ai murmur No obvious peripheral emboli lungs clear well healed chest incision some l knee swelling labs reviewed echo official read pending ?filamentous debris on ventricular view of prosthetic ao valve Imp: ?Prosthetic SBE; rec JULIETA, await c+s final results ?Graft infection; rec CTA Ao/chest Hx of many ("50") episodes of amaurosis alternating eyes, last several wks ago, some with low A/C; continue a/c Hx of RF- RA? with scope jul 2016 on left and more recent tap and steroid injection, ? related to infection; may need ortho eval/retap For now ABx and above. Reoperation more difficult as he has a valved conduit which likely would require reop root replacement rather than "simple" reop avr so hopefully can avoid surgery. Plan: 02/27/17 14:56 03/01/17 22:20 Pt seen earlier this am no new c/o x more eye symptoms briefly, os > od. He notes these seem to happen when he misses a meal. +- mild night sweat last night afeb vss cor rrr 2/6 simone crisp valve sounds lungs clear wbc wnl bc + 02/26 here julieta unremarkable cta unremarkable imp likely prosthetic valved conduit endocarditis but no obvious change on surface or julieta or cta. Rec abx LONG course If persistent bacteremia or other clinical change will need to consider surgery. Objective: Vital Signs Temp Pulse Resp BP Pulse Ox 36.5 C 67 13 109/65 96 03/01/17 20:00 03/01/17 20:00 03/01/17 20:00 03/01/17 20:00 03/01/17 20:00 Microbiology 02/28/17 16:30 Gram Stain - Final Synovial Fluid - Aspirate Laboratory Results 03/01/17 04:45 03/01/17 04:45 02/28/17 03/01/17 03/02/17 05:59 05:59 05:59 Intake Total 2515 1690 1802 Balance 2515 1690 1802 PT 28.5 SEC (12.0-15.0) H 03/01/17 04:45 INR 2.64 (0.83-1.16) H 03/01/17 04:45 ICD10 Worksheet Patient Problems: Problems Problem Status Onset Bacteremia Acute Endocarditis Acute
[2017-03-02] MEDS: GENTAMICIN SULFATE IV SCH ×3 (02:06→18:10)
[2017-03-02] MEDS: D5W IV SCH ×3 (02:06→18:10)
[2017-03-02 05:51] LABS: INR 2.1 (0.83-1.16); PROTIME(PATIENT) 23.7 SEC (12.0-15.0)
[2017-03-02 05:56] LABS: ANION GAP 7 mEq/L (8-16); CALCIUM 9.5 mg/dL (8.5-10.4); CARBON DIOXIDE 31 mEq/l (22-31); CHLORIDE 102 mEq/L (97-110); CREATININE 0.9 mg/dL (0.7-1.3); GLOMERULAR FILTRATION RATE > 60; GLUCOSE 104 mg/dL (70-100); POTASSIUM 4.6 mEq/L (3.5-5.2); SODIUM 140 mEq/L (134-144)
[2017-03-02] MEDS: cefTRIAXone 2 GM in D5W 50 ML IV SCH (09:16)
--- NOTE | 2017-03-02 09:35 | SOAPPROG ---
FELIX Progress Note Assessment/Plan: Assessment: 56-year-old male with a history of bicuspid aortic valve who presented 26 years ago with an aortic dissection. At that time, he underwent [place] aortic valve replacement surgery and placement of a [place]-Vern graft in the ascending aorta. Presents now with 2 week history of night sweats and rigors. He has had a several month history of chills. Earlier this year he had a dental cleaning in the absence of prophylactic antibiotics. Last July he had left knee arthroscopy done. About 3 weeks ago he had his left knee aspirated. Has positive blood cultures for Abiotropia Defectiva. At this point, the diagnosis of prosthetic valve endocarditis is not definitive. He falls into the possible range. He is currently being treated with broad-spectrum antibiotics. His left knee was aspirated with a culture currently pending. There were no organisms identified. I reviewed his gated chest CT with Radiology. There was no indication of a perivalvular abscess or other active process within the chest cavity. Plan: At this point, I think that he can be managed conservatively with a 6 week course of intravenous antibiotics. There is no clear indication to proceed with cardiovascular surgery. If he fails to eradicate this infection, develops an embolic phenomena, manifests significant valve dysfunction or has ongoing clinical symptoms suggesting an occult underlying infection this can be reconsidered. 03/02/17 09:36 Subjective: He states he feels well. He has not had any further fever, chills or sweats. He notes no dyspnea. Blood cultures from the , at this point, continue to be negative. Objective: Vital Signs Temp Pulse Resp BP Pulse Ox 36.6 C 71 16 106/64 96 03/02/17 07:10 03/02/17 07:10 03/02/17 07:10 03/02/17 07:10 03/02/17 07:10 Microbiology 02/28/17 16:30 Gram Stain - Final Synovial Fluid - Aspirate Laboratory Results 03/01/17 04:45 03/02/17 05:24 03/01/17 03/02/17 03/03/17 05:59 05:59 05:59 Intake Total 1689 1911 50 Balance 0 1911 50 PT 23.7 SEC (12.0-15.0) H 03/02/17 05:24 INR 2.10 (0.83-1.16) H 03/02/17 05:24 Physical Exam - Physical Exam General Appearance: WD/WN, no apparent distress Neck: non-tender, full range of motion Respiratory: lungs clear Cardiac/Chest: regular rate, rhythm, systolic murmur (1/6), other ([place] mechanical valve sounds) Peripheral Pulses: 2+: carotid (R), carotid (L) Abdomen: non-tender, soft Male Genitalia: deferred Rectal: deferred Neuro/Psych: alert, oriented x 3 ICD10 Worksheet Patient Problems: Problems Problem Status Onset Bacteremia Acute Endocarditis Acute
--- NOTE | 2017-03-02 13:19 | HOSPPROG ---
Hospitalist Progress Note Assessment/Plan: # Abiotrophia defectiva bacteremia - rocephin and gent per ID - not clearly endocarditis by [place] criteria # possible endocarditis, graft infection in setting of mechanical AV, ascending aorta graft - JULIETA without clear vegetation - hope to avoid surgery if possible # short segment of aortic dissection # L knee effusion - arthrocentesis today, send for culture - follow culture (NGTD), crystals # mechanical AVR - almost 30 years ago d/t bicuspid AV - INR 2.5-3.5, coumadin restarted - lovenox bridge today (INR 2.1) # ?seronegative RA - doubt, more likely symptoms d/t SBE/bacteremia Subjective: no sweats last night; has transient tinnitus and ear fullness, now resolved Objective: Vital Signs Temp Pulse Resp BP Pulse Ox 36.7 C 82 18 115/78 96 03/02/17 11:14 03/02/17 11:14 03/02/17 11:14 03/02/17 11:14 03/02/17 11:14 Microbiology 02/28/17 16:30 Gram Stain - Final Synovial Fluid - Aspirate Laboratory Results 03/01/17 04:45 03/02/17 05:24 03/01/17 03/02/17 03/03/17 05:59 05:59 05:59 Intake Total 1690 1912 151 Balance 1690 1912 151 PT 23.7 SEC (12.0-15.0) H 03/02/17 05:24 INR 2.10 (0.83-1.16) H 03/02/17 05:24 - Time Spent With Patient Time Spent with Patient: greater than 25 minutes Time Spent with Patient: Greater than 25 minutes spent on this patients care, greater than 50% of time spent counseling, educating, and coordinating care regarding the above mentioned plan. - Physical Exam Constitutional: no apparent distress, not in pain Cardiovascular: systolic murmur, other (S2 click, unchanged) ICD10 Worksheet Patient Problems: Problems Problem Status Onset Endocarditis Acute Bacteremia Acute
[2017-03-02] MEDS: ENOXAPARIN 80 MG/0.8 ML SYR SC SCH ×2 (14:13→20:52)
[2017-03-02] MEDS ORDERED: WARFARIN SODIUM 5 MG TAB PO SCH (16:00)
--- NOTE | 2017-03-02 18:31 | PCMIDPN ---
Assessment/Plan: Assessment/Plan: 1. 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 -Currently on ceftriaxone and gentamicin. -Peak and trough levels of gentamicin yesterday elevated. dose reduced to 40mg q8. f/u t/p later today. - Peak should be between 3 and 4, with an undetectable trough. -f/u blood cx 02/28/17 ngtd - JULIETA no vegetations. - appreciate Ophtho's eval - care coordinated with Rn. Murguia ceftraixone 2g daily Gent 40 mg q8---dose originally started on 02/27/17 evening at 80mg q8 Subjective: afebrile. no c/o tinnitus or ear fullness or decrease in hearing today. [place] a little lightheaded this morning but none since. denies sob, abd pain. having loose stools today x 3. Objective: Vital Signs Temp Pulse Resp BP Pulse Ox 36.7 C 78 16 110/71 96 03/02/17 15:20 03/02/17 15:20 03/02/17 15:20 03/02/17 15:20 03/02/17 15:20 Microbiology 02/28/17 16:30 Gram Stain - Final Synovial Fluid - Aspirate Laboratory Results 03/01/17 04:45 03/02/17 05:24 03/01/17 03/02/17 03/03/17 05:59 05:59 05:59 Intake Total 1690 1912 1252 Balance 1690 1912 1252 ESR 23 MM/HR (0-20) H 02/27/17 04:55 C-Reactive Protein 25.3 mg/L (<10.0) H 02/27/17 04:55 - Physical Exam General Appearance: alert, no apparent distress EENT: No thrush Respiratory: lungs clear Cardiac/Chest: regular rate, rhythm, systolic murmur Extremities: No swelling Abdomen: normal bowel sounds, non-tender, soft, No distended Skin: No erythema ICD10 Worksheet Patient Problems: Problems Problem Status Onset Bacteremia Acute Endocarditis Acute
[2017-03-03] MEDS: D5W IV SCH ×3 (02:04→17:39)
[2017-03-03] MEDS: GENTAMICIN SULFATE IV SCH ×3 (02:04→17:39)
[2017-03-03 08:57] LABS: INR 1.81 (0.83-1.16); PROTIME(PATIENT) 21.1 SEC (12.0-15.0)
[2017-03-03] MEDS: cefTRIAXone 2 GM in D5W 50 ML IV SCH (09:26)
[2017-03-03] MEDS: ENOXAPARIN 80 MG/0.8 ML SYR SC SCH ×2 (09:30→21:20)
--- NOTE | 2017-03-03 09:56 | PDCARPN ---
Cardiology Progress Note Chief Complaint: No cardiovascular complaints Assessment/Plan: Assessment: Patient is a 56 y/o male with history of bicuspid aortic valve s/p mechanical AVR with graft to the ascending aorta (in the setting of dissection), who presented to [facility] with rigors and diaphoresis. ID has been involved with IV antibiotic therapy (ongoing sensitivity). Echo, JULIETA, and CT chest without evidence of vegetation noted. Clinical suspicion is high and CT surgery has seen the patient. Plans for conservative management for the next six weeks with likely repeat imaging via CT and echo (surface versus JULIETA versus both). No cardiovascular complaints of chest pains or pressure. No PND or orthopnea. No fevers or chills. No rigors of night sweats have been noted. Plan: (1) IV antibiotics should continue for minimum of six weeks (2) Will coordinate with all subspecialties on discharge planning and aggressive outpatient follow up. Subjective: No cardiovascular complaints Reviewed/Discussed With: family, hospitalist Objective: Vital Signs (8 Hrs) Temp Pulse Resp BP Pulse Ox 03/03/17 08:00 36.5 C 68 12 122/85 H 97 03/03/17 06:02 36.5 C 67 13 95/62 L 96 Intake/Output (24 Hrs) 03/02/17 03/03/17 03/04/17 05:59 05:59 05:59 Intake Total 1911 1402 50 Balance 1911 1402 50 Intake: Oral (ml) 1550 1150 IV Intake (ml) 50 IV Infused (ml) 312 252 50 Gentamicin 80 mg/NaCl 100 202 ml @ 100 mls/hr IV Q8H TAN Rx#:[id number] Gentamicin Sulfate 40 mg 110 202 In D5w 100 ml @ 101 mls/ hr IV Q8H TAN Rx#: [id number] cefTRIAXone 2 gm In D5w 50 50 50 ml @ 100 mls/hr IV DAILY TAN Rx#:[id number] Other: Intake Quantity Yes Sufficient Number of Voids Toilet 1 Result Diagrams: 03/01/17 04:45 03/02/17 05:24 Telemetry: Sinus rhythm - Physical Exam Constitutional: WDWN, healthy appearing, no apparent distress Eyes: PERRL, EOMI Ears, Nose, Mouth, Throat: moist mucous membranes Cardiovascular: regular rate and rhythm, systolic murmur, No jugular vein distention Peripheral Pulses: 2+: dorsalis-pedis (R), dorsalis-pedis (L) Respiratory: clear to auscultate bilat, no crackles, no wheezes Gastrointestinal: normoactive bowel sounds Genitourinary: no suprapubic tenderness Skin: no rashes, no abrasions, no edema Musculoskeletal: no muscular tenderness Neurologic: AAOx3, CN II-XII grossly intact Psychiatric: cooperative, interactive, following commands ICD10 Worksheet Patient Problems: Problems Problem Status Onset Bacteremia Acute Endocarditis Acute
--- NOTE | 2017-03-03 14:21 | SOAPPROG ---
[facility] Progress Note Assessment/Plan: Assessment: Plan: 03/03/17 14:16 d/w pt and Dr Dalal review of JULIETA concerning for vegetations on LV side of valve w/o apparent involvement of leaflets or obvious paaravalvular area will obtain cardiac MRI to r/o abscess and for baseline for assisted compasrison if "suppressive" therapy is current plan advised arch and proximal DTA aneurysmal and should have yearly CTA surveillance advised children and siblings should be screened foe AA will follow w you Objective: Vital Signs Temp Pulse Resp BP Pulse Ox 36.6 C 72 16 117/69 98 03/03/17 12:00 03/03/17 12:00 03/03/17 12:00 03/03/17 12:00 03/03/17 12:00 Microbiology 02/28/17 16:30 Gram Stain - Final Synovial Fluid - Aspirate Laboratory Results 03/01/17 04:45 03/02/17 05:24 03/02/17 03/03/17 03/04/17 05:59 05:59 05:59 Intake Total 1911 1402 150 Balance 1912 1402 150 PT 21.1 SEC (12.0-15.0) H 03/03/17 08:40 INR 1.81 (0.83-1.16) H 03/03/17 08:40 ICD10 Worksheet Patient Problems: Problems Problem Status Onset Bacteremia Acute Endocarditis Acute
--- NOTE | 2017-03-03 15:32 | HOSPPROG ---
Hospitalist Progress Note Assessment/Plan: # Abiotrophia defectiva bacteremia, mechanical AVR, aortic root graft - rocephin and gent per ID - discussed at length with Dr Browne - he feels that the JULIETA shows a bulky vegetation - repeat JULIETA tomorrow - check cardiac MRI # short segment of aortic dissection # L knee effusion - arthrocentesis today, send for culture - follow culture (NGTD), crystals # mechanical AVR - almost 30 years ago d/t bicuspid AV - INR 2.5-3.5, coumadin restarted - lovenox bridge # ?seronegative RA - doubt, more likely symptoms d/t SBE/bacteremia Subjective: no changes; ongoing pleuritic CP; discussed with Dr Browne Objective: Vital Signs Temp Pulse Resp BP Pulse Ox 36.6 C 72 16 117/69 98 03/03/17 12:00 03/03/17 12:00 03/03/17 12:00 03/03/17 12:00 03/03/17 12:00 Microbiology 02/28/17 16:30 Gram Stain - Final Synovial Fluid - Aspirate Laboratory Results 03/01/17 04:45 03/02/17 05:24 03/02/17 03/03/17 03/04/17 05:59 05:59 05:59 Intake Total 1912 1402 150 Balance 1912 1402 150 PT 21.1 SEC (12.0-15.0) H 03/03/17 08:40 INR 1.81 (0.83-1.16) H 03/03/17 08:40 - Time Spent With Patient Time Spent with Patient: greater than 35 minutes Time Spent with Patient: Greater than 35 minutes spent on this patients care, greater than 50% of time spent counseling, educating, and coordinating care regarding the above mentioned plan. ICD10 Worksheet Patient Problems: Problems Problem Status Onset Bacteremia Acute Endocarditis Acute
[2017-03-03] MEDS ORDERED: GADOBUTROL 10 ML VIAL IVP ONE (17:48)
--- NOTE | 2017-03-03 18:35 | PCMIDPN ---
Assessment/Plan: Assessment: Aortic valve endocarditis-prosthetic valve mechanical. Causative organism is abiotrophia defectiva. Treatment course for this pathogen is ceftriaxone plus gentamicin. Patient is tolerating this regimen fairly well at this point. There is some concern after review of the most recent transesophageal echocardiogram whether there is a larger vegetation then was previously known present in that imaging. Patient will also undergo a cardiac MRI. We are attempting to eliminate the possibility that the patient has operative indications immediately. If he does not we will continue with IV antibiotic regimen for 6 weeks and followed thereafter by oral antibiotic suppression. Plan: 1. Continue both ceftriaxone and gentamicin for now. 2. Repeat transesophageal echocardiogram. 3. Cardiac MRI as per Dr. román mccarty. 4. Follow clinical course. 03/03/17 18:32 Subjective: Patient is in his hospital room with his son. He has no particular new complaint. Appears to be tolerating both the ceftriaxone and gentamicin without problem. No fevers or chills. No rash. Objective: Ceftriaxone # 4 Gentamicin # 3 Vital Signs Temp Pulse Resp BP Pulse Ox 36.6 C 68 16 126/77 H 98 03/03/17 16:00 03/03/17 16:00 03/03/17 16:00 03/03/17 16:00 03/03/17 16:00 Microbiology 02/28/17 16:30 Gram Stain - Final Synovial Fluid - Aspirate Laboratory Results 03/01/17 04:45 03/02/17 05:24 03/02/17 03/03/17 03/04/17 05:59 05:59 05:59 Intake Total 1912 1402 250 Balance 1912 1402 250 ESR 23 MM/HR (0-20) H 02/27/17 04:55 C-Reactive Protein 25.3 mg/L (<10.0) H 02/27/17 04:55 - Physical Exam General Appearance: WD/WN, alert, no apparent distress, non-toxic Respiratory: lungs clear, normal breath sounds, No respiratory distress Cardiac/Chest: regular rate, rhythm, No tachycardia Skin: normal color, warm/dry, No rash ICD10 Worksheet Patient Problems: Problems Problem Status Onset Bacteremia Acute Endocarditis Acute
[2017-03-04] MEDS: GENTAMICIN SULFATE IV SCH ×2 (02:03→09:29)
[2017-03-04] MEDS: D5W IV SCH ×2 (02:03→09:29)
[2017-03-04] MEDS ORDERED: fentaNYL 100 MCG/2 ML INJ IVP ONE (07:16)
[2017-03-04] MEDS ORDERED: MIDAZOLAM 2 MG/2 ML VIAL IVP ONE (07:16)
[2017-03-04] MEDS ORDERED: NS 500 ML IV ONE (07:16)
[2017-03-04] MEDS ORDERED: BENZOCAINE UNIT DOSE SPRAY HURRICAINE MM ONE (07:16)
[2017-03-04] MEDS: cefTRIAXone 2 GM in D5W 50 ML IV SCH (08:41)
[2017-03-04] MEDS: ENOXAPARIN 80 MG/0.8 ML SYR SC SCH (08:41)
[2017-03-04 08:55] VITALS: TEMP 97.7; O2SAT 96
[2017-03-04] MEDS ORDERED: MIDAZOLAM 2 MG/2 ML VIAL ONE (09:46)
[2017-03-04] MEDS ORDERED: fentaNYL 100 MCG/2 ML INJ ONE (09:47)
--- NOTE | 2017-03-04 10:04 | PDPROPOC ---
Sedation Plan of Care Sedation Plan of Care: vital signs stable, mental status noted, patient educated of risks, benefits, alternatives, patient can tolerate sedation ASA Classification: ASA 1 Planned drugs: fentanyl, midazolam Mallampati Score: Class 1 Mallampati Reference Image: Patient passed 3-3-2 rule?: Yes
[2017-03-04] MEDS ORDERED: ALTEPLASE 2 MG VIAL IVP PRN (10:43)
--- NOTE | 2017-03-04 10:45 | PDCARTEE ---
CAR JULIETA CAR JULIETA: Discussion with patient about risks and benefits of the procedure (JULIETA with sedation). Consents were signed, and preprocedural sedation assessment was completed. Hurricaine spray was used for local anesthetic, and the JULIETA probe was placed without difficulty with standard views obtained. Preliminary report: Normal LVEF No LVH Grossly normal atrial dimensions Mild smoke was noted to the LA chamber There appears to be some thickening to the mitral valve leaflets. Thick chordae were noted with the mitral valve Moderate redundancy to the tricuspid valve leaflets Poor visualization of the mechanical aortic valve with questionable vegetations to the ventricular side of the valve in some views Poor visualization of the pulmonic valve No bubble contrast injection was performed (has been done in past) Recommendations for patient to assist with acquiring IMAGES from prior two echocardiograms (one from [facility] and one from [facility]) for care conference tomorrow.
--- NOTE | 2017-03-04 10:48 | PDCARPN ---
Cardiology Progress Note Chief Complaint: No cardiovascular complaints were voiced today Assessment/Plan: Assessment: 03-04-17 No cardiovascular events/complaints overnight. Plans after the patient was seen yesterday to reassess valves today given questionable findings on the last JULIETA (five days prior). Patient continues with IV antibiotic coverage. Will review new JULIETA images with CT surgery today. I have concerns about the bacteria isolated, the unusual tissue redundancy that has been appreciated on JULIETA imaging, and the symptoms that were initially reported. There did not appear to be a substantial change in the findings noted between the two TEEs that were completed in [facility]. 03-03-17 Patient is a 56 y/o male with history of bicuspid aortic valve s/p mechanical AVR with graft to the ascending aorta (in the setting of dissection), who presented to [facility] with rigors and diaphoresis. ID has been involved with IV antibiotic therapy (ongoing sensitivity). Echo, JULIETA, and CT chest without evidence of vegetation noted. Clinical suspicion is high and CT surgery has seen the patient. Plans for conservative management for the next six weeks with likely repeat imaging via CT and echo (surface versus JULIETA versus both). No cardiovascular complaints of chest pains or pressure. No PND or orthopnea. No fevers or chills. No rigors of night sweats have been noted. Plan: (1) IV antibiotics should continue for minimum of six weeks (2) Will coordinate with all subspecialties on discharge planning and aggressive outpatient follow up. (3) Cardiology would like to have all images from the last 2 outside echocardiograms for tomorrow's case presentation. Subjective: No complaints Reviewed/Discussed With: family, multidisciplinary team Objective: Vital Signs (8 Hrs) Temp Pulse Resp BP Pulse Ox 03/04/17 08:00 36.5 C 79 12 101/74 96 Intake/Output (24 Hrs) 03/03/17 03/04/17 03/05/17 05:59 05:59 05:59 Intake Total 1512 1950 Balance 1512 1950 Intake: Oral (ml) 1150 1700 IV Infused (ml) 362 250 Gentamicin Sulfate 40 mg 312 200 In D5w 100 ml @ 101 mls/ hr IV Q8H TAN Rx#: [id number] cefTRIAXone 2 gm In D5w 50 50 50 ml @ 100 mls/hr IV DAILY TAN Rx#:[id number] Other: Intake Quantity Yes Yes Sufficient Number of Voids Toilet 1 2 Number of Stools Toilet 2 Result Diagrams: 03/01/17 04:45 03/02/17 05:24 - Physical Exam Constitutional: WDWN, healthy appearing, no apparent distress Eyes: PERRL, EOMI Ears, Nose, Mouth, Throat: moist mucous membranes Cardiovascular: regular rate and rhythm, no murmurs Peripheral Pulses: 2+: dorsalis-pedis (R), dorsalis-pedis (L) Respiratory: clear to auscultate bilat, no crackles, no wheezes Gastrointestinal: normoactive bowel sounds Skin: no rashes, no edema Musculoskeletal: no muscular tenderness Neurologic: AAOx3, CN II-XII grossly intact Psychiatric: cooperative, interactive, following commands ICD10 Worksheet Patient Problems: Problems Problem Status Onset Bacteremia Acute Endocarditis Acute
[2017-03-04 12:24] LABS: INR 1.61 (0.83-1.16); PROTIME(PATIENT) 19.2 SEC (12.0-15.0)
[2017-03-04 12:28] VITALS: BP 122/73; PULSE 77; RESP 14
--- NOTE | 2017-03-04 12:55 | PCMIDPN ---
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 Sensi will not be available for another 5 days . Change gentamicin to once daily dosing. recommended dose of 3mg/kg was adjusted based on decreases in synergetic gent already made - final dose 120mg IV daily. --re-reviewed risks of antibiotics and PICC Line Subjective: feeling well no side effect to antibiotics hopeful to go home Objective: Vital Signs Temp Pulse Resp BP Pulse Ox 36.5 C 77 14 122/73 H 96 03/04/17 12:00 03/04/17 12:00 03/04/17 12:00 03/04/17 12:00 03/04/17 12:00 Microbiology 02/28/17 16:30 Gram Stain - Final Synovial Fluid - Aspirate Laboratory Results 03/01/17 04:45 03/02/17 05:24 03/03/17 03/04/17 03/05/17 05:59 05:59 05:59 Intake Total 1512 1950 Balance 1512 1950 ESR 23 MM/HR (0-20) H 02/27/17 04:55 C-Reactive Protein 25.3 mg/L (<10.0) H 02/27/17 04:55 - Physical Exam General Appearance: non-toxic, other (vigorous appearing) EENT: No scleral icterus Respiratory: lungs clear, No accessory muscle use Neck: supple Cardiac/Chest: regular rate, rhythm, systolic murmur Extremities: No pedal edema Skin: No rash, No embolic lesions Neuro/Psych: alert, normal mood/affect, oriented x 3 - Line/s RUE PICC Lines: No drainage, No erythema - Time Spent With Patient Time Spent with Patient: greater than 35 minutes Time Spent with Patient: Greater than 35 minutes spent on this patients care, greater than 50% of time spent counseling, educating, and coordinating care regarding the above mentioned plan. ICD10 Worksheet Patient Problems: Problems Problem Status Onset Bacteremia Acute Endocarditis Acute
--- NOTE | 2017-03-04 13:00 | PDIAF ---
- Diagnosis Diagnosis: abiotrophia PV endocarditis Code Status: Full Code - Medication Management Discharge Medications: Medications to Continue on Transfer Herbals/Supplements -Info Only 1 ea PO DAILY 02/26/17 [Last Taken 02/26/17] Warfarin Sodium [Coumadin 5MG (*)] 10 mg PO TUTHSA@16 02/26/17 [Last Taken 02/25] Warfarin Sodium [Coumadin 5MG (*)] 12.5 mg PO SUMOWEFR@16 02/26/17 [Last Taken 02/26/17] celeCOXIB [Celebrex (*)] 200 mg PO DAILY PRN 02/26/17 [Last Taken 02/26/17] Nursing Home Antibiotics: ceftriaxone 2gm IV daily; gentamicin 120mg IV daily Nursing Home Antibiotic Stop Date: 04/11/17 Discharge Medications: Refer to the Discharge Home Medication list for PRN reason. PICC Care - Routine: Yes - Orders Services needed: Home Care, Registered Nurse Home Care Face to Face: I certify that this patient was under my care and that I had the required [id number] encounter meeting the encounter requirements on the discharge day. My findings support the fact that the patient is homebound as defined in Home Care Face to Face Continued: CMS Chapter 7 Medicare Benefits Manual 30.1.1 , The condition of the patient is such that there exists a normal inability to leave home and consequently, leaving home would require a considerable and taxing effort. - Labs/Radiology BMP Date: 03/07/17 CBC w/diff Date: 03/10/17 (Weekly, Friday) CMP Date: 03/10/17 (Weekly, Friday) Other Lab Name, Date and Time: gentamicin trough and peak and BMP on 03/07/17 and 03/10/17 Call or Fax Lab and Imaging Results to: Jennifer Delgado MD [facility] Diseases at fax [phone] - Follow Up Care Current Providers and Referrals: NONE *PRIMARY CARE P,. [Primary Care Provider] - As per Instructions Jennifer Delgado MD [Medical Doctor] - 03/11/17 11:30 am
--- NOTE | 2017-03-04 16:38 | ECHO ---
[email or web address] [address] [address] Main: [phone] Fax: Transesophageal Echocardiography Name: AGNIESZKA LOMBARDI MR#: [id number] Study Date: 03/04/2017 Study Time: 09:52 AM Date of : 1960 Age: 56 year(s) Height: ( ) Weight: ( ) BSA: Gender: Male Examination: JULIETA Indication: r/o vegetation Image Quality: Contrast: Requested by: Mindy Miguel Heart Rate: Rhythm: BP: / Procedure Staff Spot Welder Body Assembly: Daphnie Nguyen Physician: Javy York Requesting Provider: JULIETA Exam Details Conclusions: Normal size left ventricle. Normal global systolic LV function. There is no mitral valve vegetation. Prominient papillary muscle noted.. There are small linear echo's attached to ventricular side of the bileaflet tilting disk aortic valve.. There is mild thickening of the tricuspid valve leaflets. Mild tricuspid regurgitation is present. Measurements: Chambers Valvular Assessment AV/MV Valvular Assessment TV/PV Normal Normal Normal Name Value Range Name Value Range Name Value Range Additional Measurements: Findings: Left Ventricle: Normal size left ventricle. Concentric LV hypertrophy. Normal global systolic LV function. Right Ventricle: Normal size right ventricle. Normal RV function. Mitral Valve: The mitral valve is normal in appearance. There is no mitral valve vegetation. Prominient papillary muscle noted.. Patient: AGNIESZKA LOMBARDI Study Date: 03/04/2017 Page 1 of 2 09:52 AM Aortic Valve: Trivial to mild aortic valve regurgitation. There are small linear echo's attached to ventricular side of the bileaflet tilting disk aortic valve.. Tricuspid Valve: The tricuspid valve appears normal. There is mild thickening of the tricuspid valve leaflets. Mild tricuspid regurgitation is present. No tricuspid valve vegetation. l1n (No Signature Object) Patient: AGNIESZKA LOMBARDI Study Date: 03/04/2017 Page 2 of 2 09:52 AM [id number]
--- NOTE | 2017-03-05 02:18 | GDS ---
[f rep st] DISCHARGE SUMMARY ALL DIAGNOSES: 1. Abiotrophia defectiva bacteremia, high concern for endocarditis. 2. History of mechanical aortic valve replacement. 3. Aortic root graft. 4. Left knee effusion. 5. Questionable seronegative rheumatoid arthritis. HOSPITAL COURSE: 56-year-old man, who presented with positive blood cultures after being sent in by Dr. Rodriguez. He had a mechanical aortic valve placed about 29 years ago for a bicuspid aortic valve. C ultures grew out Abiotrophia defectiva. He has been seen by Infectious Disease, Cardiothoracic Surge ry, Cardiology. He does not clearly meet criteria for endocarditis, though certainly this is a very high concern. He has had 2 transesophageal echocardiograms, which have been somewhat not diagnostic. There was concern for vegetations seen on the ventricular side of the aortic valve, though this is not clear given the quality of both. He had a cardiac MRI, which showed no perivalvular abscess. Hi s follow-up blood cultures have been no growth to date since February 28. He has had no clear embo lic or immunologic events from his endocarditis. He had had a recent diagnosis of seronegative rheum atoid arthritis, which I think is more likely attributable to his bacteremia. He will be discharged on Rocephin, as well as gentamicin dose by Infectious Disease. Susceptibilities were sent to [facility] in on his abiotrophia; however, these are pending at the time of discharge. If these come back wit h a low STEVE to penicillin, he may not need gentamicin for the entire course. He will follow up with Dr. Dalal in Infectious Disease. FOLLOWUP: 1. Dr. Dalal for ongoing management. 2. Dr. Rodriguez. He will likely need sequential transthoracic and transesophageal echocardiograms to fo llow his valves. 3. Dr. Browne in 1 year to follow his aortic root and known dissection. BILLING: I spent more than 30 minutes on the day of discharge coordinating care. Copy requested to: Dr. Washburn /[id number]/MODL
== END 2017-03-04 17:04 | disposition home health service (06) | DRG 289 ==
LOC: INTOOBSV 18:22 → F2W 19:52 → OBSVTOIN 22:42
PROVIDERS: ADMIT Internal Medicine; ATTEND Student in an Organized Health Care Education/Training Program
PROC: 0S9D3ZX Drainage of Left Knee Joint, Percutaneous Approach, Diagnostic (ICD-10-PCS; principal; 2017-02-28)
PROC: 02HV33Z Insertion of Infusion Device into Superior Vena Cava, Percutaneous Approach (ICD-10-PCS; 2017-03-04)
DX: I33.0 Acute and subacute infective endocarditis (principal); R78.81 Bacteremia; M06.00 Rheumatoid arthritis without rheumatoid factor, unspecified site; B96.4 Proteus (mirabilis) (morganii) as the cause of diseases classified elsewhere; M25.462 Effusion, left knee; Z95.2 Presence of prosthetic heart valve; H53.9 Unspecified visual disturbance
CPT/HCPCS: 96365; A9585; C1751; J0696; J1580; J1650; J2250; J3010; J3370; Q9967

== ENCOUNTER 2017-04-16 07:17 | Day surgery (SDC) | payer OTHER ==
[2017-04-16] MEDS ORDERED: NS 500 ML IV ONE (07:22)
[2017-04-16] MEDS ORDERED: BENZOCAINE UNIT DOSE SPRAY HURRICAINE MM ONE (07:22)
[2017-04-16] MEDS ORDERED: fentaNYL 100 MCG/2 ML INJ IVP ONE (07:22)
[2017-04-16] MEDS ORDERED: MIDAZOLAM 2 MG/2 ML VIAL IVP ONE (07:22)
--- NOTE | 2017-04-16 09:12 | PDGENHP ---
History & Physical History of Present Illness: 56 year old with hx of mechanical AVR and aortic root approximately 30 years ago with recent septicemia. Now off of antibiotics Pertinent Past, Social, Family History: Hx of AVR and aortic root 30 years ago Relevant Physical Exam: Awake, Alert, Appropriate
[2017-04-16] MEDS ORDERED: PROPOFOL 200 MG/20 ML VIAL ONE ×3 (09:15→09:41)
--- NOTE | 2017-04-16 09:15 | PDANEPAE ---
ANE History of Present Illness 56 yo for ayse ANE Past Medical History - Cardiovascular History Hx Hypertension: No Hx Arrhythmias: No Hx CHF / Valvular Disease: Yes - Pulmonary History Hx Oxygen in Use at Home: No Hx Sleep Apnea: No - Endocrine History Hx Diabetes: No ANE Review of Systems Review of Systems: - Exercise capacity METS (RN): 4 METS ANE Patient History - Allergies Allergies/Adverse Reactions: No Known Allergies Allergy (Unverified 02/26/17 16:20) - Home Medications Home medications: home medication list seen and reviewed Home Medications: Herbals/Supplements -Info Only 1 ea PO DAILY 02/26/17 [Last Taken 04/15/17 08:00 ] Warfarin Sodium [Coumadin 5MG (*)] 10 mg PO TUTHSA@16 02/26/17 [Last Taken 04/15 16:00] Warfarin Sodium [Coumadin 5MG (*)] 12.5 mg PO SUMOWEFR@16 02/26/17 [Last Taken 04/14/17 16:00] celeCOXIB [Celebrex (*)] 200 mg PO DAILY PRN 02/26/17 [Last Taken 02/26/17] - NPO status NPO Status: no food or drink >8 hours - Anes Hx Anes Hx: no prior problems - Smoking Hx Smoking Status: Never smoked ANE Labs/Vital Signs - Vital Signs Height: 5 ft 10.08 in Weight: 73.9 kg ANE Physical Exam - Airway Neck exam: FROM Mallampati Score: Class 2 Mouth exam: normal dental/mouth exam - Pulmonary Pulmonary: no respiratory distress ANE Anesthesia Plan Anesthesia Plan: GA with mask
--- NOTE | 2017-04-16 09:57 | POSTANESTH ---
Post Anesthetic Evaluation Cardiovascular Status: Normal, Stable Respiratory Status: Normal, Stable Level of Consciousness/Mental Status: Can Participate in Eval Pain Control: Adequate, Prn Tx Ordered Nausea/Vomiting Control: Adequate, Prn Tx Ordered Complications Possibly Related to Anesthesia: None Noted
--- NOTE | 2017-04-16 10:12 | CPR ---
[f rep st] NONINVASIVE CARDIAC PROCEDURE REPORT DATE OF PROCEDURE: 04/16/2017 PROCEDURE PERFORMED: Transesophageal echocardiogram. INDICATION FOR PROCEDURE: Recent history of bacteremia in the setting of mechanical aortic valve and aortic root replacement approximately 30 years ago and possible aortic valve endocarditis. PROCEDURE: After informed consent was obtained for both JULIETA as well as anesthesia, the patient had a bite block put in place. A time-out was obtained. Once appropriate level of sedation was achieved with propofol with the assistance of Anesthesia, JULIETA probe was passed without incident. JULIETA probe wa s used to take images of all cardiac structures with the primary focus on the aortic valve, aortic ro ot, as well as mitral valve. There was normal physiologic aortic regurgitation in the setting of a m echanical aortic valve with no evidence of perivalvular leakage. No evidence of endocarditis on eith er the aortic or mitral valve. Please see complete JULIETA report for details. The patient tolerated th e procedure well. JULIETA probe was removed without incident. PLAN: 1. Will review images with the patient once he awakes from anesthesia. 2. The patient will continue to follow closely with me in my office as well as with Dr. Jennifre Delgado of Infectious Disease. /[id number]/MODL
--- NOTE | 2017-04-16 12:47 | ECHO ---
[email or web address] [address] [address] Main: [phone] Fax: Transesophageal Echocardiography Name: AGNIESZKA LOMBARDI MR#: [id number] Study Date: 04/16/2017 Study Time: 09:14 AM Date of : 1960 Age: 56 year(s) Height: ( ) Weight: ( ) BSA: Gender: Male Examination: JULIETA Indication: AVR follow up Image Quality: Contrast: Requested by: Hebert Rodriguez Heart Rate: Rhythm: Normal sinus rhythm BP: / Procedure Staff Herpetologist: Tab Harris Reading Physician: Hebert Rodriguez Requesting Provider: JULIETA Exam Details Conclusions: Normal global systolic LV function. The mitral valve is normal in appearance. 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 Normal functioning aortic valve prosthesis. Trivial prosthesis regurgitation. No vegetation on aortic valve prosthesis. No aortic valve prosthesis abscess. no vegetation . 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 Measurements: Chambers Valvular Assessment AV/MV Valvular Assessment TV/PV Normal Normal Normal Name Value Range Name Value Range Name Value Range AV Vmax: 2.15 m/s (1 m/s-1.7 m/s) AV maxP mmHg ( - ) AV meanP mmHg ( - ) Additional Measurements: Findings: Left Ventricle: Patient: AGNIESZKA LOMBARDI Study Date: 04/16/2017 Page 1 of 2 09:14 AM Normal size left ventricle. Normal global systolic LV function. Right Ventricle: Normal RV function. Left Atrium: The left atrium is normal in size. Normal appearing atrial septum. No thrombus is noted in the left atrium. Left Atrial Appendage: No thrombus in left appendage. Right Atrium: The right atrium is normal in size. Mitral Valve: The mitral valve is normal in appearance. Trivial mitral valve regurgitation. There is no mitral valve vegetation. Aortic Valve: The aortic valve is a bileaflet mechanical prosthesis. Normal functioning aortic valve prosthesis. Trivial prosthesis regurgitation. No vegetation on aortic valve prosthesis. No aortic valve prosthesis abscess. Tricuspid Valve: The tricuspid valve appears normal. Pulmonic Valve: The pulmonic valve is normal in appearance and function. Aorta: no vegetation . 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 Normal size. Exam Comments: The aortic valve is a mechanical prosthesis. There is no obvious evidence of a vegetation or dehisence of the aortic valve. No evidence of a perivalvular leak. The Ao Vmax is 2.47 m/s with an Ao mean PG of 13mmHg.. l1n (No Signature Object) Patient: AGNIESZKA LOMBARDI Study Date: 04/16/2017 Page 2 of 2 09:14 AM [id number]
== END 2017-04-16 11:09 | disposition home or self-care (01) ==
LOC: FCATH 07:17
PROVIDERS: ATTEND Internal Medicine Cardiovascular Disease
PROC: B245ZZ4 Ultrasonography of Left Heart, Transesophageal (ICD-10-PCS; principal; 2017-04-16)
DX: I33.0 Acute and subacute infective endocarditis (principal); E78.5 Hyperlipidemia, unspecified; Z95.2 Presence of prosthetic heart valve
CPT/HCPCS: J2704